=== PATIENT | female | born 1980 | race Two or more races ===

== ENCOUNTER 2020-07-05 04:28 | Day surgery (SDC) | payer OTHER ==
[2020-07-01 16:05] VITALS: BMI 22.6
[2020-07-05] MEDS ORDERED: SUCCINYLCHOLINE CHLORIDE 200 MG/10 ML SYRINGE ONE (07:23)
[2020-07-05] MEDS ORDERED: PROPOFOL 20 ML ONE (07:23)
[2020-07-05] MEDS ORDERED: DEXAMETHASONE SOD PHOSPHATE 4 MG/1 ML VIAL ONE (07:23)
[2020-07-05] MEDS ORDERED: ONDANSETRON 4 MG/2 ML VIAL ONE (07:23)
[2020-07-05] MEDS ORDERED: MIDAZOLAM HCL 2 MG/2 ML SINGLE DOSE VIAL ONE ×2 (07:41)
[2020-07-05] MEDS ORDERED: ROPIVACAINE HCL 0.5% 30ML VIAL ONE (07:42)
[2020-07-05] MEDS ORDERED: ceFAZolin SODIUM 1 GM VIAL ONE (08:23)
[2020-07-05] MEDS ORDERED: ceFAZolin SODIUM 1 GM VIAL IVPB ONE (08:23)
[2020-07-05] MEDS ORDERED: ONDANSETRON 4 MG/2 ML VIAL IVPUSH PRN (10:04)
[2020-07-05] MEDS ORDERED: oxyCODONE HCL 5 MG TABLET PO PRN ×2 (10:04)
[2020-07-05] MEDS ORDERED: LACTATED RINGERS SOLUTION 1,000 ML IV SCH (10:15)
[2020-07-05 11:03] VITALS: BP 109/73; PULSE 73; TEMP 73
== END 2020-07-05 11:15 | disposition home or self-care (01) ==
LOC: JASU-SURG 04:28
PROVIDERS: ATTEND Orthopaedic Surgery
PROC: 0RNJ4ZZ Release Right Shoulder Joint, Percutaneous Endoscopic Approach (ICD-10-PCS; principal; 2020-07-05 08:00)
DX: M75.41 Impingement syndrome of right shoulder (principal)
CPT/HCPCS: 81025; 88304-TC; 94760

== ENCOUNTER 2021-03-14 04:27 | Day surgery (SDC) | payer OTHER ==
[2021-03-10 13:27] VITALS: BMI 21.7
[2021-03-14] MEDS ORDERED: ROPIVACAINE HCL 0.5% 30ML VIAL ONE (08:20)
[2021-03-14] MEDS ORDERED: DEXAMETHASONE SOD PHOSPHATE 10 MG/1 ML VIAL ONE (08:20)
[2021-03-14] MEDS ORDERED: MIDAZOLAM HCL 2 MG/2 ML SINGLE DOSE VIAL ONE ×4 (08:21→09:59)
[2021-03-14] MEDS ORDERED: PROPOFOL 20 ML ONE ×3 (09:50)
[2021-03-14] MEDS ORDERED: ceFAZolin SODIUM 1 GM VIAL ONE (10:01)
[2021-03-14] MEDS ORDERED: ONDANSETRON 4 MG/2 ML VIAL ONE (10:01)
[2021-03-14] MEDS ORDERED: ceFAZolin SODIUM 1 GM VIAL IVPB ONE (10:10)
[2021-03-14] MEDS ORDERED: oxyCODONE HCL 5 MG TABLET PO PRN (10:32)
[2021-03-14 13:16] VITALS: BP 103/65; PULSE 64; TEMP 98
== END 2021-03-14 12:45 | disposition home or self-care (01) ==
LOC: JASU-SURG 04:27
PROVIDERS: ATTEND Orthopaedic Surgery
PROC: 0RQJ4ZZ Repair Right Shoulder Joint, Percutaneous Endoscopic Approach (ICD-10-PCS; principal; 2021-03-14 09:00)
DX: S43.431A Superior glenoid labrum lesion of right shoulder, initial encounter (principal); X58.XXXA Exposure to other specified factors, initial encounter; Y92.9 Unspecified place or not applicable
CPT/HCPCS: 29806; C1713; 94760; J1100